=== PATIENT | female | born 1975 | race Caucasian/White ===

== ENCOUNTER 2016-07-19 15:06 | Emergency (ER) | payer SELFPAY ==
[~2016-07-19] VITALS: Ht 165.1 cm; Wt 81.6 kg
[2016-07-19 16:00] LABS: Basophils # (auto) 0.2 uL; Eosinophils # (auto) 0.3 uL; Eosinophils % (auto) 2.7 % (0.0-7.0); Hematocrit 41.2 % (36.0-46.0); Hemoglobin 13.5 g/dL (12.2-16.2); Lymphocytes # (auto) 1.7 uL; Mean Corpuscular Hemoglobin 28.9 pg (28.0-32.0); Mean Corpuscular Hgb Conc. 32.8 g/dL (32.0-36.0); Mean Platelet Volume 8.8 fL (7.4-10.4); Monocytes # (auto) 0.5 uL; Monocytes % (auto) 4.5 % (0.0-12.0); Neutrophils % (auto) 76.6 % (37.0-80.0); Platelet Count (auto) 331 10^3/uL (140-450); Red Cell Distribution Width 14.5 % (11.6-16.0); White Blood Cell 11.7 10^3/uL (4.4-10.8)
[2016-07-19 16:03] LABS: Basophils % (auto) 0.6 % (0.0-2.0); Lymphocytes % (auto) 15.6 % (10.0-50.0)
[2016-07-19 16:13] LABS: INR 0.99 (0.9-1.15); Partial Thromboplastin Time 27.6 sec (22.64-33.71); Prothrombin Time 10.2 sec (9.37-12.3)
[2016-07-19 16:18] LABS: BUN/Creatinine Ratio 21.2; Bilirubin, Total 0.2 mg/dL (0.2-1.0); Potassium 4.3 mmol/L (3.5-5.1)
[2016-07-19 16:23] LABS: Urine Bilirubin Negative (Negative); Urine Color Yellow (Yellow); Urine Glucose Normal (Normal); Urine Ketone Negative (Negative); Urine Nitrite Negative (Negative); Urine RBC 6 /hpf (0 - 4); Urine Squamous Epithelial Cell MOD /hpf (<5); Urine Urobilinogen Normal (Negative)
[2016-07-19 16:29] LABS: Urine Blood 2+ /uL (Negative)
== END 2016-07-19 22:06 | disposition left against medical advice (07) ==
LOC: ER 15:11
DX: K92.2 Gastrointestinal hemorrhage, unspecified (principal); Z53.21 Procedure and treatment not carried out due to patient leaving prior to being seen by health care provider
CPT/HCPCS: 36415; 80053; 81001; 81025; 85025; 85610; 85730

== ENCOUNTER 2016-09-15 18:00 | Emergency (ER) | payer MEDICAID ==
[~2016-09-15] VITALS: Ht 165.1 cm; Wt 82.6 kg
[2016-09-15 18:11] VITALS: BP 171/96
[2016-09-15] MEDS ORDERED: HYDROcodone-ACET 10/325MG TAB PO ONE (22:00)
== END 2016-09-15 21:55 | disposition home or self-care (01) ==
LOC: ER 18:04
DX: S01.01XA Laceration without foreign body of scalp, initial encounter (principal); S60.211A Contusion of right wrist, initial encounter; S00.03XA Contusion of scalp, initial encounter; Z88.0 Allergy status to penicillin; Z88.6 Allergy status to analgesic agent; F17.210 Nicotine dependence, cigarettes, uncomplicated; F15.10 Other stimulant abuse, uncomplicated; F14.10 Cocaine abuse, uncomplicated; Y08.89XA Assault by other specified means, initial encounter; Y93.89 Activity, other specified; Y99.8 Other external cause status; Y92.89 Other specified places as the place of occurrence of the external cause
CPT/HCPCS: 12002; 70450; 73110

== ENCOUNTER 2016-11-07 14:51 | Inpatient (IN) | payer MEDICAID ==
[~2016-11-07] VITALS: Ht 167.6 cm; Wt 84.4 kg
[2016-11-07] MEDS: cefTRIAXone 1GM/50ML D5W 50 ML IV ONE ×2 (16:30→17:10)
[2016-11-07 16:43] LABS: Urine RBC None Seen /hpf (0 - 4)
[2016-11-07] MEDS ORDERED: cloNIDine HCL 0.1 MG TAB PO ONE (16:45)
[2016-11-07 17:09] LABS: Urine Bilirubin Negative (Negative); Urine Blood Negative /uL (Negative); Urine Color Yellow (Yellow); Urine Glucose Normal (Normal); Urine Ketone Negative (Negative); Urine Mucus FEW (None Seen); Urine Nitrite Negative (Negative); Urine Squamous Epithelial Cell FEW /hpf (<5); Urine Urobilinogen Normal (Negative)
[2016-11-07] MEDS ORDERED: ONDANSETRON HCL 4 MG/2 ML VIAL IV ONE (17:45)
[2016-11-07] MEDS ORDERED: MORPHINE SULF INJ 2 MG/ML SYRINGE 1ML IV ONE (17:45)
[2016-11-07 17:48] LABS: Hematocrit 41.9 % (36.0-46.0); Mean Corpuscular Hemoglobin 29.4 pg (28.0-32.0); Mean Corpuscular Hgb Conc. 33.4 g/dL (32.0-36.0); Mean Platelet Volume 9.5 fL (7.4-10.4); Platelet Count (auto) 313 10^3/uL (140-450); Red Cell Distribution Width 15.5 % (11.6-16.0); SUSPECT VIEW TRANSMISSION; White Blood Cell 20.7 10^3/uL (4.4-10.8)
[2016-11-07 18:01] LABS: Albumin 3.4 g/dL (3.4-5.0); BUN/Creatinine Ratio 14.7; Bilirubin, Total 0.3 mg/dL (0.2-1.0); Calcium 8.6 mg/dL (8.5-10.1); INR 0.95 (0.9-1.15); Magnesium 2.4 mg/dL (1.6-2.6); Partial Thromboplastin Time 29.9 sec (22.64-33.71); Potassium 3.8 mmol/L (3.5-5.1); Prothrombin Time 10.3 sec (9.37-12.3); Total Protein 7.3 g/dL (6.4-8.2)
[2016-11-07 18:13] LABS: Metamyelocytes % 0; Myelocytes % 0; Promyelocytes % 0; Reactive Lymphocytes 0
[2016-11-07 18:30] LABS: Platelet Estimate Adequate
[2016-11-07] MEDS ORDERED: hydrALAZINE HCL 20 MG/ML VL IV ONE (19:00)
[2016-11-07] MEDS ORDERED: ENALAPRIL MALEATE 2.5 MG TAB PO ONE (21:45)
[2016-11-07] MEDS ORDERED: cloNIDine HCL 0.1 MG TAB PO PRN (21:45)
[2016-11-07] MEDS ORDERED: NITROGLYCERIN 0.4 MG SL TAB SL PRN (21:45)
[2016-11-07] MEDS ORDERED: MORPHINE SULF INJ 2 MG/ML SYRINGE 1ML IV PRN (21:45)
[2016-11-07] MEDS ORDERED: HYDROcodone-ACET 5/325MG TAB PO PRN (21:45)
[2016-11-07] MEDS ORDERED: ACETAMINOPHEN 325 MG TAB PO PRN (21:45)
[2016-11-07] MEDS ORDERED: ONDANSETRON HCL 4 MG/2 ML VIAL IV PRN (21:45)
[2016-11-07] MEDS ORDERED: TEMAZEPAM 15 MG CAP PO PRN (21:45)
[2016-11-07] MEDS ORDERED: diphenhdrAMINE HCL 25 MG CAP PO PRN (22:00)
[2016-11-07] MEDS: FAMOTIDINE 20 MG TAB PO SCH (22:28)
[2016-11-07] MEDS: SODIUM CHLORIDE 0.9% 1,000 ML IV SCH (22:28)
[2016-11-07] MEDS: CLINDAMYCIN 600MG IV 50 ML IV SCH (22:28)
[2016-11-07] MEDS: MORPHINE SULF INJ 2 MG/ML SYRINGE 1ML IV PRN (23:14)
[2016-11-07 23:22] VITALS: BP 154/92
[2016-11-07 23:51] VITALS: BP 154/92
[2016-11-08] MEDS ORDERED: LABETALOL HCL 5 MG/ML 4ML SYRINGE IV ONE (02:15)
[2016-11-08] MEDS ORDERED: LISI-646 PO (02:58)
[2016-11-08] MEDS ORDERED: ALBUAER3 IN (02:58)
[2016-11-08 05:08] VITALS: BP 151/87
[2016-11-08] MEDS: CLINDAMYCIN 600MG IV 50 ML IV SCH ×2 (05:30→14:00)
[2016-11-08 05:57] LABS: Basophils # (auto) 0.1 uL; Basophils % (auto) 0.5 % (0.0-2.0); Eosinophils # (auto) 0.3 uL; Eosinophils % (auto) 1.8 % (0.0-7.0); Hematocrit 37.8 % (36.0-46.0); Hemoglobin 12.6 g/dL (12.2-16.2); Lymphocytes # (auto) 1.6 uL; Lymphocytes % (auto) 10.9 % (10.0-50.0); Mean Corpuscular Hemoglobin 29.4 pg (28.0-32.0); Mean Corpuscular Hgb Conc. 33.4 g/dL (32.0-36.0); Mean Corpuscular Volume 88.2 fL (80.0-100.0); Mean Platelet Volume 9.5 fL (7.4-10.4); Monocytes # (auto) 1.1 uL; Monocytes % (auto) 7.8 % (0.0-12.0); Neutrophils # (auto) 11.4 uL; Platelet Count (auto) 278 10^3/uL (140-450); Red Cell Distribution Width 15.4 % (11.6-16.0); White Blood Cell 14.5 10^3/uL (4.4-10.8)
[2016-11-08 06:06] LABS: BUN/Creatinine Ratio 12.3; Calcium 7.9 mg/dL (8.5-10.1); Potassium 3.4 mmol/L (3.5-5.1)
[2016-11-08 06:08] LABS: Bilirubin, Total 0.5 mg/dL (0.2-1.0); Total Protein 6.5 g/dL (6.4-8.2)
[2016-11-08] MEDS: FAMOTIDINE 20 MG TAB PO SCH (08:27)
[2016-11-08] MEDS: MORPHINE SULF INJ 2 MG/ML SYRINGE 1ML IV PRN (08:27)
[2016-11-08] MEDS ORDERED: cefTRIAXone 1GM/50ML D5W 50 ML IV SCH (09:00)
[2016-11-08 09:30] VITALS: BP 136/77
[2016-11-08] MEDS ORDERED: LISINOPRIL 10 MG TAB PO SCH (10:00)
[2016-11-08] MEDS ORDERED: ENOXAPARIN SOD 40 MG/0.4 ML SYRINGE SC SCH (10:00)
[2016-11-08 12:31] VITALS: BP 136/77
[2016-11-08 13:30] VITALS: BP 135/76
[2016-11-08] MEDS ORDERED: HYDR-4663 PO (13:50)
[2016-11-08] MEDS ORDERED: LISI10TA6 PO (13:50)
[2016-11-08] MEDS ORDERED: CLIN1CAP4 PO (13:50)
[2016-11-08] MEDS: SODIUM CHLORIDE 0.9% 1,000 ML IV SCH (14:24)
== END 2016-11-08 16:00 | disposition home health service (06) | DRG 383 ==
LOC: ER 14:51 → TELE 14:52 → TELE-EAST 23:23
PROVIDERS: ADMIT Internal Medicine; ATTEND Internal Medicine
DX: L03.114 Cellulitis of left upper limb (principal); I10 Essential (primary) hypertension; F15.90 Other stimulant use, unspecified, uncomplicated; D72.829 Elevated white blood cell count, unspecified; L03.113 Cellulitis of right upper limb; F17.210 Nicotine dependence, cigarettes, uncomplicated; J45.909 Unspecified asthma, uncomplicated; L73.9 Follicular disorder, unspecified; Z82.49 Family history of ischemic heart disease and other diseases of the circulatory system; Z83.3 Family history of diabetes mellitus; F12.10 Cannabis abuse, uncomplicated; Z88.6 Allergy status to analgesic agent; Z88.0 Allergy status to penicillin; Z88.8 Allergy status to other drugs, medicaments and biological substances; Z71.89 Other specified counseling; Z91.14 Patient's other noncompliance with medication regimen
CPT/HCPCS: 36415; 80053; 80307; 81001; 81025; 83605; 83735; 85007; 85025; 85027; 85610; 85730; 87040; 87081; 87205; 94761; 96365; 96375; J0696; J2405; J3490

== ENCOUNTER 2016-12-05 11:01 | Inpatient (IN) | payer MEDICAID ==
[~2016-12-05] VITALS: Ht 165.1 cm; Wt 86.1 kg
[~2016-12-05 11:01] MED LIST: CLIN1CAP4 PO; HYDR-4663 PO; LISI10TA6 PO
[2016-12-05] MEDS ORDERED: cloNIDine HCL 0.1 MG TAB PO ONE (11:15)
[2016-12-05 12:18] LABS: Basophils # (auto) 0 uL; CONDITION Y; Eosinophils # (auto) 0.3 uL; Eosinophils % (auto) 2.5 % (0.0-7.0); Hematocrit 43.8 % (36.0-46.0); Hemoglobin 14.6 g/dL (12.2-16.2); Lymphocytes % (auto) 15.2 % (10.0-50.0); Mean Corpuscular Hemoglobin 29.9 pg (28.0-32.0); Mean Corpuscular Hgb Conc. 33.2 g/dL (32.0-36.0); Mean Corpuscular Volume 89.9 fL (80.0-100.0); Mean Platelet Volume 9.2 fL (7.4-10.4); Monocytes # (auto) 0.5 uL; Monocytes % (auto) 3.8 % (0.0-12.0); Neutrophils # (auto) 10.5 uL; Neutrophils % (auto) 78.5 % (37.0-80.0); Platelet Count (auto) 331 10^3/uL (140-450); Red Cell Distribution Width 15.6 % (11.6-16.0); White Blood Cell 13.3 10^3/uL (4.4-10.8)
[2016-12-05 12:38] LABS: Albumin 3.9 g/dL (3.4-5.0); Bilirubin, Total 0.7 mg/dL (0.2-1.0); Calcium 9.3 mg/dL (8.5-10.1); Potassium 3.8 mmol/L (3.5-5.1)
[2016-12-05] MEDS ORDERED: hydrALAZINE HCL 20 MG/ML VL IV ONE ×2 (14:00→15:30)
[2016-12-05] MEDS ORDERED: diphenhdrAMINE HCL 50 MG/1 ML VL IV ONE (14:00)
[2016-12-05 14:47] LABS: INR 0.99 (0.9-1.15); Partial Thromboplastin Time 29.6 sec (22.64-33.71); Prothrombin Time 10.8 sec (9.37-12.3)
[2016-12-05 14:58] LABS: Urine Bilirubin Negative (Negative); Urine Blood Negative /uL (Negative); Urine Color Yellow (Yellow); Urine Glucose Normal (Normal); Urine Ketone TRACE (Negative); Urine Mucus FEW (None Seen); Urine Nitrite Negative (Negative); Urine RBC <1 /hpf (0 - 4); Urine Squamous Epithelial Cell FEW /hpf (<5); Urine Urobilinogen Normal (Negative); Urine pH 5.5 (5.0-8.0)
[2016-12-05] MEDS ORDERED: NEOMYCIN-BACITRACIN-POLYM UNITDOSE PKG TOP OINT TOP ONE (15:45)
[2016-12-05] MEDS ORDERED: HYDROCORTONE 1% TOPICAL CREAM 30 GM TUBE TOP ONE (15:45)
[2016-12-05] MEDS ORDERED: cefTRIAXone 1GM/50ML D5W 50 ML IV ONE (16:00)
[2016-12-05] MEDS ORDERED: ACETAMINOPHEN 500 MG TAB PO PRN (16:15)
[2016-12-05] MEDS ORDERED: LACTULOSE 20Gm/30ML SOLN PO PRN (16:15)
[2016-12-05] MEDS ORDERED: TEMAZEPAM 15 MG CAP PO PRN (16:15)
[2016-12-05] MEDS ORDERED: LORazepam 0.5 MG TAB PO PRN (16:15)
[2016-12-05] MEDS ORDERED: MORPHINE SULF INJ 2 MG/ML SYRINGE 1ML IV PRN (16:15)
[2016-12-05] MEDS ORDERED: NITROGLYCERIN 0.4 MG SL TAB SL PRN (16:15)
[2016-12-05] MEDS ORDERED: ENALAPRILAT 1.25 MG/ML-1ML VIAL IV PRN (16:15)
[2016-12-05] MEDS ORDERED: ALBUTEROL SULF 2.5 MG/0.5ML(0.5%) NEB SOLN NEB PRN (16:15)
[2016-12-05] MEDS ORDERED: VANCOMYCIN PER PHARMACY 0 MG IV SCH (16:15)
[2016-12-05] MEDS ORDERED: LISINOPRIL 10 MG TAB PO ONE (16:15)
[2016-12-05] MEDS ORDERED: ENALAPRILAT 1.25 MG/ML-1ML VIAL IV ONE (16:15)
[2016-12-05] MEDS ORDERED: VANCOMYCIN 1GM/250ML D5W 250 ML IV ONE (16:30)
[2016-12-05] MEDS: SODIUM CHLORIDE 0.9% 1,000 ML IV SCH (16:45)
[2016-12-05] MEDS: PROMETHAZINE HCL 25 MG/ML 1ML IV PRN ×2 (16:45→21:52)
[2016-12-05] MEDS: MORPHINE SULF INJ 2 MG/ML SYRINGE 1ML IV PRN ×2 (16:45→21:53)
[2016-12-05] MEDS: methylPREDNISolone SOD SUCC 40 MG/ML VL IV SCH (17:29)
[2016-12-05] MEDS: ALBUTEROL SULF 2.5 MG/0.5ML(0.5%) NEB SOLN NEB SCH (18:00)
[2016-12-05] MEDS ORDERED: VANCOMYCIN 1GM/250ML D5W 250 ML IV SCH (18:15)
[2016-12-05 18:56] VITALS: BP 157/91
[2016-12-05 20:00] VITALS: BP 153/85
[2016-12-05] MEDS: HYDROcodone-ACET 5/325MG TAB PO PRN (20:10)
[2016-12-05 22:00] VITALS: BP 153/85
[2016-12-06] VITALS (7 sets, daily range): BP systolic 149–169; BP diastolic 86–106
[2016-12-06] MEDS: ALBUTEROL SULF 2.5 MG/0.5ML(0.5%) NEB SOLN NEB SCH ×5 (00:09→23:46)
[2016-12-06] MEDS: methylPREDNISolone SOD SUCC 40 MG/ML VL IV SCH ×5 (00:51→23:51)
[2016-12-06] MEDS: SODIUM CHLORIDE 0.9% 1,000 ML IV SCH ×3 (02:09→23:55)
[2016-12-06] MEDS: MORPHINE SULF INJ 2 MG/ML SYRINGE 1ML IV PRN ×5 (02:40→21:18)
[2016-12-06] MEDS: HYDROcodone-ACET 5/325MG TAB PO PRN ×3 (04:41→18:19)
[2016-12-06] MEDS: VANCOMYCIN 1GM/250ML D5W 250 ML IV SCH ×2 (06:11→18:18)
[2016-12-06 06:20] LABS: Basophils # (auto) 0 uL; CONDITION Y; Eosinophils # (auto) 0 uL; Eosinophils % (auto) 0.2 % (0.0-7.0); Hematocrit 40.9 % (36.0-46.0); Hemoglobin 13.6 g/dL (12.2-16.2); Lymphocytes # (auto) 0.8 uL; Mean Corpuscular Hemoglobin 29.9 pg (28.0-32.0); Mean Corpuscular Hgb Conc. 33.4 g/dL (32.0-36.0); Mean Corpuscular Volume 89.6 fL (80.0-100.0); Mean Platelet Volume 9.4 fL (7.4-10.4); Monocytes # (auto) 0.1 uL; Monocytes % (auto) 0.5 % (0.0-12.0); Neutrophils # (auto) 12.2 uL; Neutrophils % (auto) 93.3 % (37.0-80.0); Platelet Count (auto) 307 10^3/uL (140-450); Red Cell Distribution Width 15.4 % (11.6-16.0); White Blood Cell 13.1 10^3/uL (4.4-10.8)
[2016-12-06 07:12] LABS: Albumin 3.3 g/dL (3.4-5.0); BUN/Creatinine Ratio 16.7; Bilirubin, Total 0.3 mg/dL (0.2-1.0); Calcium 9.1 mg/dL (8.5-10.1); Potassium 3.9 mmol/L (3.5-5.1); Total Protein 6.9 g/dL (6.4-8.2)
[2016-12-06] MEDS: LISINOPRIL 10 MG TAB PO SCH (10:31)
[2016-12-06] MEDS: LEVOFLOXACIN 500MG 100 ML IV SCH (10:31)
[2016-12-06] MEDS ORDERED: diphenhdrAMINE HCL 12.5 MG/5 ML UD GT PRN (15:00)
[2016-12-06] MEDS: diphenhdrAMINE HCL 25 MG CAP PO PRN (16:10)
[2016-12-07] VITALS (7 sets, daily range): BP systolic 131–165; BP diastolic 70–87
[2016-12-07] MEDS: HYDROcodone-ACET 5/325MG TAB PO PRN ×3 (00:41→17:59)
[2016-12-07] MEDS: MORPHINE SULF INJ 2 MG/ML SYRINGE 1ML IV PRN ×4 (04:30→20:48)
[2016-12-07] MEDS: methylPREDNISolone SOD SUCC 40 MG/ML VL IV SCH ×3 (06:00→21:55)
[2016-12-07 06:25] LABS: CONDITION Y; Hematocrit 38.8 % (36.0-46.0); Hemoglobin 12.8 g/dL (12.2-16.2); Mean Corpuscular Hgb Conc. 33.1 g/dL (32.0-36.0); Mean Corpuscular Volume 90.6 fL (80.0-100.0); Mean Platelet Volume 9.5 fL (7.4-10.4); Platelet Count (auto) 282 10^3/uL (140-450); Red Cell Distribution Width 15.7 % (11.6-16.0); SUSPECT SEE PRINTOUT; White Blood Cell 28.2 10^3/uL (4.4-10.8)
[2016-12-07 06:40] LABS: BUN/Creatinine Ratio 19.1; Calcium 8.3 mg/dL (8.5-10.1); Potassium 4.4 mmol/L (3.5-5.1)
[2016-12-07 07:01] LABS: Metamyelocytes % 0; Myelocytes % 0; Promyelocytes % 0; Reactive Lymphocytes 0
[2016-12-07] MEDS: ALBUTEROL SULF 2.5 MG/0.5ML(0.5%) NEB SOLN NEB SCH ×3 (07:04→18:51)
[2016-12-07 07:46] LABS: Hypersegmented Neutrophils Present; Platelet Estimate Adequate
[2016-12-07 07:47] LABS: RBC Morphology Normal
[2016-12-07] MEDS: VANCOMYCIN 1GM/250ML D5W 250 ML IV SCH ×2 (09:01→15:41)
[2016-12-07] MEDS: SODIUM CHLORIDE 0.9% 1,000 ML IV SCH ×2 (09:02→17:59)
[2016-12-07] MEDS: MUPIROCIN 2% OINT 22GM EACHNOSTRI SCH ×2 (09:52→21:55)
[2016-12-07] MEDS: LISINOPRIL 10 MG TAB PO SCH (09:52)
[2016-12-07] MEDS: LEVOFLOXACIN 500MG 100 ML IV SCH (09:54)
[2016-12-07] MEDS: diphenhdrAMINE HCL 25 MG CAP PO PRN (15:01)
[2016-12-08] VITALS (7 sets, daily range): BP systolic 145–170; BP diastolic 83–109
[2016-12-08] MEDS: ALBUTEROL SULF 2.5 MG/0.5ML(0.5%) NEB SOLN NEB SCH ×4 (00:04→18:34)
[2016-12-08] MEDS: VANCOMYCIN 1GM/250ML D5W 250 ML IV SCH ×4 (00:49→20:24)
[2016-12-08] MEDS: MORPHINE SULF INJ 2 MG/ML SYRINGE 1ML IV PRN ×4 (01:21→20:49)
[2016-12-08] MEDS: diphenhdrAMINE HCL 25 MG CAP PO PRN ×2 (01:21→08:01)
[2016-12-08] MEDS: SODIUM CHLORIDE 0.9% 1,000 ML IV SCH ×2 (03:47→15:29)
[2016-12-08 07:30] LABS: Basophils # (auto) 0 uL; Basophils % (auto) 0.1 % (0.0-2.0); CONDITION Y; Eosinophils # (auto) 0 uL; Eosinophils % (auto) 0.1 % (0.0-7.0); Hematocrit 37.4 % (36.0-46.0); Hemoglobin 12.4 g/dL (12.2-16.2); Lymphocytes # (auto) 3.3 uL; Lymphocytes % (auto) 15.4 % (10.0-50.0); Mean Corpuscular Hgb Conc. 33.1 g/dL (32.0-36.0); Mean Corpuscular Volume 90.5 fL (80.0-100.0); Mean Platelet Volume 9.2 fL (7.4-10.4); Monocytes # (auto) 1.3 uL; Neutrophils # (auto) 16.8 uL; Neutrophils % (auto) 78.4 % (37.0-80.0); Platelet Count (auto) 303 10^3/uL (140-450); Red Cell Distribution Width 15.7 % (11.6-16.0); White Blood Cell 21.4 10^3/uL (4.4-10.8)
[2016-12-08 07:54] LABS: BUN/Creatinine Ratio 25.7; Calcium 8.4 mg/dL (8.5-10.1); Magnesium 2.3 mg/dL (1.6-2.6); Potassium 3.7 mmol/L (3.5-5.1)
[2016-12-08] MEDS: ENALAPRILAT 1.25 MG/ML-1ML VIAL IV PRN ×2 (08:00→16:37)
[2016-12-08] MEDS: HYDROcodone-ACET 5/325MG TAB PO PRN ×2 (08:00→14:32)
[2016-12-08] MEDS: methylPREDNISolone SOD SUCC 40 MG/ML VL IV SCH (10:02)
[2016-12-08] MEDS: LISINOPRIL 10 MG TAB PO SCH (10:06)
[2016-12-08 11:10] LABS: Rheumatoid Arthritis Factor <10.0 IU/mL (0.0-13.9); Sjogren's Anti-SS-A Antibody <0.2 AI (0.0-0.9)
[2016-12-08] MEDS: MUPIROCIN 2% OINT 22GM EACHNOSTRI SCH (15:29)
== END 2016-12-08 22:43 | disposition home or self-care (01) | DRG 383 ==
LOC: ER 11:01 → TELE 11:02 → TELE-CENTR 19:27 → CENTRAL 12-07 16:26
PROVIDERS: ADMIT Internal Medicine; ATTEND Internal Medicine
DX: L03.114 Cellulitis of left upper limb (principal); I16.0 Hypertensive urgency; Z83.2 Family history of diseases of the blood and blood-forming organs and certain disorders involving the immune mechanism; L03.113 Cellulitis of right upper limb; D72.829 Elevated white blood cell count, unspecified; J45.909 Unspecified asthma, uncomplicated; F17.210 Nicotine dependence, cigarettes, uncomplicated; I10 Essential (primary) hypertension; Z82.49 Family history of ischemic heart disease and other diseases of the circulatory system; Z83.3 Family history of diabetes mellitus; Z88.6 Allergy status to analgesic agent; Z88.5 Allergy status to narcotic agent; Z88.0 Allergy status to penicillin; Z71.89 Other specified counseling; F19.10 Other psychoactive substance abuse, uncomplicated; F14.10 Cocaine abuse, uncomplicated; F15.10 Other stimulant abuse, uncomplicated
CPT/HCPCS: 36415; 71010; 80048; 80053; 80061; 80202; 80307; 81001; 83516; 83520; 83735; 84443; 84484; 85007; 85025; 85027; 85610; 85652; 85730; 86141; 86160; 86225; 86235; 86256; 86431; 87040; 87077; 87081; 87086; 87186; 87205; 93005; 94640; 94761; 96374; 96375; J0696; J1956